=== PATIENT | female | born 1985 | race Caucasian/White ===

== ENCOUNTER 2016-09-23 14:30 | Inpatient (IN) | payer OTHER ==
[~2016-09-23] VITALS: Ht 162.6 cm; Wt 60.8 kg
[2016-09-23] VITALS (19 sets, daily range): BP systolic 107–135; BP diastolic 63–92
[~2016-09-23 14:30] MED LIST: CIPROFLOXACN500 MG PO; IRON325 M1 PO; PRE-NATAL PO; ULTRAM50 M1 PO
[2016-09-23 14:45] LABS: URINE BILIRUBIN - DIPSTICK NEGATIVE (NEGATIVE); URINE BLOOD DIPSTICK NEGATIVE (NEGATIVE); URINE COLOR YELLOW; URINE GLUCOSE - DIPSTICK NEGATIVE (NEGATIVE); URINE KETONE NEGATIVE (NEGATIVE); URINE NITRITE - DIPSTICK NEGATIVE (Negative); URINE PROTEIN - DIPSTICK TRACE mg/dL (NEG-TRACE); URINE SPECIFIC GRAVITY 1.015; URINE UROBILINOGEN - DIPSTICK 0.2 E.U./dL (0.2)
[2016-09-23 14:47] LABS: URINE CLARITY HAZY; URINE LEUK ESTERASE SMALL (NEGATIVE)
[2016-09-23 14:48] LABS: BARBITURATES NEGATIVE (NEGATIVE); COCAINE NEGATIVE (NEGATIVE); METHADONE NEGATIVE (NEGATIVE); OXCYCODONE NEGATIVE (NEGATIVE); TETRAHYDROCANNABIONOL POSITIVE (NEGATIVE); TRICYLIC ANTIDEPRESSANTS NEGATIVE (NEGATIVE)
[2016-09-23 14:53] LABS: URINE SQUAMOUS EPITHELIAL CELL FEW EPI/hpf (0-FEW)
--- NOTE | 2016-09-23 15:35 | NUR ---
1435: ROM+ AND FERN SPECIMENS COLLECTED. CLEAR POOLING PRESENT IN SPECULUM. 1513: CALLED DR. WALLER AND INFORMED HIM OF PATIENT'S HISTORY AND COMPLAINTS. ADMIT ORDERS RECEIVED AND IMPLEMENTED. 1535: IV SITE INITIATED AND LABS DRAWN ORDERED. IV FLUIDS INITIATED.
--- NOTE | 2016-09-23 15:35 | NUR ---
PATIENT BROUGHT UP TO UNIT FROM ER REGISTRATION VIA WHEELCHAIR. HEIGHT AND WEIGHT OBTAINED UPON ARRIVAL TO UNIT AND PATIENT THEN AMBULATED TO ROOM 256. UA SAMPLE COLLECTED, DOA CONSENT EXPLAINED TO PATIENT AND SIGNED BY PATIENT. PART A COMPLETED. PATIENT PRESENTS AT 38 WEEKS 6 DAYS WITH COMPLAINTS OF RUPTURED MEMBRANES AT 1230 TODAY AND CONTRACTIONS THAT STARTED AT THAT TIME WELL. CLEAR FLUID PER PATIENT. PATIENT DENIES ANY VAGINAL BLEEDING AND NONE IS PRESENT. PATIENT DENIES ANY COMPLICATIONS WITH THE AND NONE ARE KNOWN.
[2016-09-23 15:54] LABS: HEMATOCRIT 31.4 % (37.0-47.0); HEMOGLOBIN 10.7 g/dl (12.0-16.0); MEAN CELL VOLUME 101.3 fL CALC (80.0-100.0); MEAN CORPUSCULAR HGB 34.5 pG CALC (26.0-32.0); MEAN CORPUSCULAR HGB CONC 34.1 g/L CALC (32.0-36.0); NEUT# 9.46 thou/uL (2.00-7.15); RED BLOOD COUNT 3.1 mill/uL (4.20-5.60)
[2016-09-23 16:14] LABS: ALBUMIN 3.2 g/dL (3.2-5.0); ALKALINE PHOSPHATASE 146 u/l (38-126); ANION GAP 14 (6-22 (CALC)); BILIRUBIN, TOTAL 0.9 mg/dL (0.0-1.4); BUN 12 mg/dL (7-17); BUN/CREATININE RATIO 25 (12-20 (CALC)); CALCIUM 9.3 mg/dL (8.4-10.2); CARBON DIOXIDE 24 mmol/l (22-30); CHLORIDE 103 mmol/l (95-108); CREATININE 0.5 mg/dL (0.5-1.0); GFR > 60 ML/MIN (>=60 (CALC)); GFR FOR AFR.AMER. > 60 ML/MIN (>=60 (CALC)); GLUCOSE 97 mg/dL (65-105); POTASSIUM 4.1 mmol/l (3.5-5.1); SGOT/AST 27 u/l (14-36); SGPT/ALT 34 u/l (9-52); SODIUM 137 mmol/l (137-146); TOTAL PROTEIN 6.5 g/dL (6.3-8.2)
--- NOTE | 2016-09-23 16:16 | NUR ---
DR. WALLER IN TO SEE PATIENT; SVE PERFORMED BY MD: 4/80%/ZERO STATION.
--- NOTE | 2016-09-23 16:35 | NUR ---
PATIENT UP AND OUT OF BED TO AMBULATE THE HALLS ACCOMPANIES BY SIGNIFICANT OTHER.
--- NOTE | 2016-09-23 17:15 | NUR ---
PATIENT BACK INTO BED AND EFM RESUMED. ICE CHIPS PROVIDED FOR PATIENT. DOA RESULTS DISCUSSED WITH PATIENT IN REGARDS TO AND DOA CONSENT OBTAINED FOR INFANT. PATIENT VERBALIZED UNDERSTANDING AND NO QUESTIONS OR CONCERNS AT THIS TIME.
--- NOTE | 2016-09-23 17:45 | NUR ---
CALLED DR. WALLER AND INFORMED HIM OF PATIENT'S POSITVE PPD AND DRUG SCREEN; ORDER RECEIVED TO OBTAIN CHEST X-RAY.
--- NOTE | 2016-09-23 18:10 | NUR ---
PATIENT TURNED ONTO HER RIGHT SIDE. PATIENT STATES HER CONTRACTIONS ARE GETTING MORE UNCOMFORTABLE BUT STILL RATES HER PAIN 6/10. BREATHING TECHNIQUES REVIEWED WITH PATIENT AND RETURN DEMONSTRATION BY PATIENT. PATIENT DENIES ANY NEEDS AT THIS TIME.
--- NOTE | 2016-09-23 18:45 | NUR ---
PT SITTING IN BED WITH HOB ELEVATED. BREATHS THROUGH CONTRACTIONS. STATES PAIN IS 7/10. VS STABLE. FETUS ACTIVE WITH REACTIVE STRIP. REQUESTS TO GO TO THE RESTROOM. NO OTHER COMPLAINTS.
--- NOTE | 2016-09-23 19:30 | NUR ---
1929: DR. WALLER CALLS THE UNIT TO CHECK ON PT STATUS. NO NEW ORDERS GIVEN. REINFORCED PT CANNOT HAVE EPIDURAL UNTIL A REGULAR CONTRACTION PATTERN IS ESTABLISHED. 1954: PT AGREES TO AMBULATE. MONITORS OFF AND AMBULATES IN HALLWAY WITH SIGNIFICANT OTHER.
--- NOTE | 2016-09-23 21:12 | NUR ---
2051: PT COMPLAINS FEELING MORE PELVIC PRESSURE. SVE PERFORMED. PT IS 4CM, 60% "0" STATION. CONTINUES LEAKING CLEAR AMNIOTIC FLUID. CHANGING POSITIONS IN BED AND "ROCKING" HERSELF DURING CONTRACTIONS. IV CONTINUES PER MED PUMP AT 125CC/HR. IV SITE WNL. FETUS ACTIVE. 2101: DR. WALLER HERE TO SEE PT. SUGGESTS TO PT TO TAKE NUBAIN FOR PAIN. PT AGREES. 2111: NUBAIN 10MG IVP GIVEN FOR PAIN OF 8. SEE E-MAR FOR DETAILS.
--- NOTE | 2016-09-23 22:07 | NUR ---
AMBULATED TO BIRTHING ROOM. CALL PLACED TO NURSING PROPOSAL CONSULTANT TO PAGE ANESTHESIA FOR EPIDURAL.
--- NOTE | 2016-09-23 22:30 | NUR ---
FHTS NOT RECORDING DUE TO PTS POSITION. PTS HEART RATE IS RECORDING ON STRIP AND IS REFLECTING CARDIAC TRACING.
--- NOTE | 2016-09-23 22:40 | NUR ---
2205:LR BOLUS STARTED FOR EPIDURAL PLACEMENT. MILADY WASHBURN CRNA HERE TO TALK TO PT. DR. WALLER IN PHYSICIANS LOUNGE ON UNIT. SALES PROJECT ADMINISTRATOR, PULSE OXIMETER, MONITORS, BP CUFF ALL IN PLACE READY FOR EPIDURAL PLACEMENT. 2231: TIME OUT CALLED FOR PT IDENTIFICATION. 2232: SITS ON SIDE OF BED WITH SIGNIFICANT OTHER SUPPORTING HER FOR EPIDURAL PLACEMENT. 2233: LOCAL ANESTHESIA GIVEN BY CYBER SECURITY INSTRUCTOR. 2234: EPIDURAL CATHETER THREADED. 2236: TEST DOSE GIVEN PER CYBER SECURITY INSTRUCTOR. 2240: EPIDURAL DOSING STARTED BY Beto WASHBURN CRNA.
--- NOTE | 2016-09-23 23:33 | NUR ---
PT VOIDS 400 CC IN BED SHAH.
[2016-09-24] VITALS (14 sets, daily range): BP systolic 101–128; BP diastolic 50–78
--- NOTE | 2016-09-24 00:30 | NUR ---
0014: O2 PLACED PER NON-REBREATHER MASK FOR O2 SATS AT 88%. O2 AT 10L/MIN. 0030: O2 SAT CHANGED TO PORTABLE VS MACHINE AND VALUE IS 91%. DR. WALLER HERE AND SECOND BAG OF MEMBRANES RUPTURE WITH BLOOD TINGED FLUID. SVE DONE 6-[address] WALLER.
--- NOTE | 2016-09-24 01:03 | NUR ---
MILADY WASHBURN DIGESTER COOK HERE TO GIVE PT ANOTHER DOSE OF NAROPIN. O2 SAT CONTINUES TO REGISTER BELOW 90%. O2 PULSE OXIMETER MOVED TO LEFT INDEX WITH BETTER READINGS AT 100%.
--- NOTE | 2016-09-24 01:33 | NUR ---
SVE EXAM PER DR. WALLER. 8CM, "O"/+1 STATION, 100% EFFACED. REACTIVE STRIP NOTED. SEE LABOR PROGRESS NOTES.
--- NOTE | 2016-09-24 03:00 | NUR ---
0240: DR.TEODORESCU FLORESE, STATES PT IS COMPLETE AND CAN START PUSHING. 0229: NURSE DOES SVE AND PT HAS ANTERIOR CERVICAL LIP. ENCOURAGED NOT TO PUSH AT THIS TIME. 0240: VOIDS ON GREEN CHUX. CONTINUES LEAKING CLEAR AMNIOTIC FLUID. IV INFUSING PER MED PUMP AT 125CC/HR. 0300: ANTERIOR LIP NOTED, TO KNEE CHEST POSITION.
--- NOTE | 2016-09-24 03:18 | NUR ---
0318: POSITIONED BACK TO SUPINE POSITION. HAVING PAIN. CALLED Beto WASHBURN CRNA FOR PERMISSION TO GIVE NUBAIN. 0325: NUBAIN GIVEN. SEE E-MAR FOR DETAILS.
--- NOTE | 2016-09-24 03:29 | NUR ---
0329: EPIDURAL BOLUS GIVEN PER PASCALE WASHBURN. 0347: PUSHING WITH CONTRACTIONS. SEE DELIVERY ROOM RECORD FOR DELIVERY.
--- NOTE | 2016-09-24 05:09 | NUR ---
ROUTINE MEDICATIONS GIVEN CHARTED ON EMAR. TOLERATED WELL.
--- NOTE | 2016-09-24 05:36 | NUR ---
[facility] ABUSE HOTLINE FAX TRANSMITTAL FORM FAXED.
--- NOTE | 2016-09-24 06:30 | NUR ---
FUNDUS FIRM 1/U DEVIATED TO RIGHT. ENCOURAGED PT TO GET UP OOB TO BR TO VOID. EMANUEL CARE PROVIDED. PT VERBALIZED UNDERSTANDING AND TOLERATED WELL W/O DIZZINESS. PT PASSED SMALL CLOT WHILE ON TOLIET. PT BACK TO BED. FUNDUS FIRM AT U. SIGNIFICANT OTHER AT BEDSIDE. PT DENIES ANY OTHER NEEDS AT THIS TIME. ENCOURAGED PT TO CALL WITH ANY NEEDS OR CONCERNS.
--- NOTE | 2016-09-24 07:00 | NUR ---
PT RESTING IN BED, ASSESSMENT AND VS DONE, STABLE. MOTRIN STARTING TO RELIEF PAIN. SIGNIFICANT OTHER AT BEDSIDE. DISCUSSED PLAN OF CARE WITH PT, PT VERBALIZED UNDERSTANDING. DENIES ANY NEEDS.
--- NOTE | 2016-09-24 08:05 | NUR ---
DR. WALLER AT BEDSIDE AT THIS TIME.
--- NOTE | 2016-09-24 08:51 | NUR ---
IVF WITH PITOCIN DONE INFUSING, IV SALINE LOCKED, FLUSHED. PT SIGNED CONSENT FOR BILATERAL TUBAL LIGATION. PT UP TO BATHROOM, VOIDED. HEAT PACKS GIVEN FOR CRAMPING. SIGNIFICANT OTHER REMAINS AT BEDSIDE, BOTH DENY ANY OTHER NEEDS.
--- NOTE | 2016-09-24 10:06 | NUR ---
PT RESTING IN BED, HOLDING , POSITIVE BONDING. DENIES ANY NEEDS.
--- NOTE | 2016-09-24 12:03 | NUR ---
MEDICATED WITH MOTRIN FOR CRAMPING PAIN, DENIES ANY OTHER NEEDS.
--- NOTE | 2016-09-24 14:07 | NUR ---
PT RESTING IN BED, HOLDING , POSITIVE BONDING. DENIES ANY PAIN OR NEEDS AT THIS TIME.
--- NOTE | 2016-09-24 16:00 | NUR ---
PT RESTING, RECENTLY SHOWERED, VS DONE, STABLE, DENIES ANY PAIN. SIGNIFICANT OTHER AT BEDSIDE.
--- NOTE | 2016-09-24 16:46 | NUR ---
DR. WALLER AT BEDSIDE ASSESSING PT.
--- NOTE | 2016-09-24 18:00 | NUR ---
GRETEL DO FROM [facility] CAME TO VISIT WITH PT AT THIS TIME.
--- NOTE | 2016-09-24 18:12 | NUR ---
PT MEDICATED WITH MOTRIN FOR CRAMPING PAIN AT THIS TIME.
--- NOTE | 2016-09-24 18:42 | NUR ---
REPORT GIVEN TO Amanda QUINTERO RN.
--- NOTE | 2016-09-24 18:45 | NUR ---
REPORT RECEIVED FROM Racquel HAYNES RN
--- NOTE | 2016-09-24 22:00 | NUR ---
POC REVIEWED WITH PT, UNDERSTANDING VERBALIZED
--- NOTE | 2016-09-25 04:00 | NUR ---
PT SLEEPING SOUNDLY WITH IN CRIB AT BS.
[2016-09-25 06:00] VITALS: BP 111/75
[2016-09-25 06:41] LABS: HEMATOCRIT 27.5 % (37.0-47.0); HEMOGLOBIN 9.2 g/dl (12.0-16.0); IMMATURE GRANULOCYTES 0.8 % (0.0-1.0); MEAN CORPUSCULAR HGB 34.5 pG CALC (26.0-32.0); MEAN CORPUSCULAR HGB CONC 33.5 g/L CALC (32.0-36.0); NEUT# 5.62 thou/uL (2.00-7.15); RED BLOOD COUNT 2.67 mill/uL (4.20-5.60); RED CELL DISTRI WIDTH 13.2 % (11.5-15.5)
--- NOTE | 2016-09-25 06:55 | NUR ---
REPORT RECEIVED FROM MARKIE PARISH. PT IS AWAKE AND ALERT, AWAITING TUBAL LIGATION, DENIES CONCERNS OR QUESTIONS
--- NOTE | 2016-09-25 07:05 | NUR ---
PREOP CHECKLIST COMPLETED, CONSENT VERIFIED, PREOP MEDS DEFERRED PER ORDNANCE ENGINEERING TECHNICIAN GANESH. TO BE DONE IN PREOP HOLDING
--- NOTE | 2016-09-25 07:12 | NUR ---
TO OR VIA STRETCHER WITH GANESH PARISH, OR TO PREOP. PREOP MEDS TO BE GIVEN PER OR. IV . IV RL BOLUS JUST BEGUN, IV SITE APPEARS HEALTHY. PT VERBALIZES UNDERSTANDING OF PROCEDURE, RISKS AND BENEFITS. SIGNED CONSENT IS ON THE CHART.
--- NOTE | 2016-09-25 09:30 | NUR ---
REPORT RECEIVED FROM Arash TORRES RN. PT ASSISTED, AMBULATED TO BED AND THEN DECIDED THAT SHE NEEDED TO VOID AND AMBULATED TO BR , VOIDED WITHOUT DIFFICULTY, CLEAR URINE. IV SITE HEALTHY. UMBILICAL INCISION WITH DERMABOND, OPEN TO AIR, NO DRESSING. PT RECEIVED TORODOL IV AT 0910. FATHER OF BABY IN THE ROOM. PLAN OF CARE DISCUSSED WITH PT AND PARTNER, ENCOURAGEMENT GIVEN, IMPORTANCE OF HELP AT HOME, DEEP BREATHING, SMOKING CESSATION AND DVT PREVENTION DISCUSSED
[2016-09-25 09:45] VITALS: BP 116/84
--- NOTE | 2016-09-25 10:01 | NUR ---
SMALL AMTS FLUIDS ENCOURAGED. PT STATES SHE IS FEELING BETTER. REST ENCOURAGED.
[2016-09-25 10:15] VITALS: BP 111/81
--- NOTE | 2016-09-25 10:22 | NUR ---
PT DOZING ON AND OFF. REQUEST FOR PAIN NUMBER DEFERRED. FATHER OF BABY IN RECLINER. IV SITE HEALTHY, INCISION WITHOUT BLEEDING. VAGINAL LOCHIA SCANT
[2016-09-25 10:45] VITALS: BP 112/78
--- NOTE | 2016-09-25 10:53 | NUR ---
PT STATES THAT SHE IS A NON SMOKER AND HAS NOT HAD A CIGARETTE SINCE EARLY IN THE . SHE DECLINES COUNSELING FOR SMOKING CESSATION. RISKS OF ANYONE SMOKING IN THE HOUSEHOLD DISCUSSED WITH BOTH PARENTS AND UNDERSTANDING VERBALIZED
--- NOTE | 2016-09-25 11:10 | NUR ---
FEELING BETTER. IV FLUIDS D/C. PT OOB TO VOID, CLEAR URINE, SELF EMANUEL CARE DONE. PT STATES PAIN IS LESS AND MOVING WELL INDEPENDENTLY
--- NOTE | 2016-09-25 11:14 | NUR ---
AMBULATION ENCOURAGED. POSTOP COMPLICATION PREVENTION AGAIN REVIEWED.
[2016-09-25 11:18] VITALS: BP 110/70
--- NOTE | 2016-09-25 13:07 | NUR ---
MEDICATED FOR PAIN OF 5. PT HOLDING HER BABY. NO VISITORS PRESENT
--- NOTE | 2016-09-25 13:42 | NUR ---
PT STATES MOTRIN EFFECTIVE, AND WILL BE NAPPING. ASKS NOT TO BE DISTURBED.
[2016-09-25] MEDS ORDERED: IBUPROFEN600 MG PO (13:59)
[2016-09-25] MEDS ORDERED: NORCO1 TA1 PO (14:01)
[2016-09-25 15:32] VITALS: BP 114/72
--- NOTE | 2016-09-25 16:08 | NUR ---
DISCHARGED TO HOME IN WHEELCHAIR, ACCOMPANIED BY FATHER OF THE BABY, CARRYING BABY IN CARSEAT, ESCORTED BY MYSELF. NO DISTRESS, AMBULATORY WITHOUT DIFFICULTY. MED REC AND D/C INSTRUCTIONS IN HAND. PT EXPRESSING HER APPRECIATION FOR HER CARE
== END 2016-09-25 16:08 | disposition home or self-care (01) | DRG 767 ==
LOC: OBOP 14:30 → OB 14:30 → OBOP 15:12 → OB 15:13
PROC: 10E0XZZ Delivery of Products of Conception, External Approach (ICD-10-PCS; principal; 2016-09-24)
PROC: 0UB70ZZ Excision of Bilateral Fallopian Tubes, Open Approach (ICD-10-PCS; 2016-09-25)
DX: O90.81 Anemia of the puerperium (principal); Z37.0 Single live birth; D62 Acute posthemorrhagic anemia; Z3A.38 38 weeks gestation of pregnancy; Z30.2 Encounter for sterilization

== ENCOUNTER 2017-06-30 15:50 | Emergency (ER) | payer OTHER ==
[~2017-06-30] VITALS: Ht 162.6 cm; Wt 50.4 kg
[~2017-06-30 15:50] MED LIST changes: +IBUPROFEN600 MG PO; +NORCO1 TA1 PO
[2017-06-30 17:55] LABS: HEMATOCRIT 38.6 % (37.0-47.0); HEMOGLOBIN 13.5 g/dl (12.0-16.0); IMMATURE GRANULOCYTES 1.3 % (0.0-1.0); MEAN CELL VOLUME 98.7 fL CALC (80.0-100.0); MEAN CORPUSCULAR HGB 34.5 pG CALC (26.0-32.0); NEUT# 3.78 thou/uL (2.00-7.15); RED BLOOD COUNT 3.91 mill/uL (4.20-5.60); RED CELL DISTRI WIDTH 12.7 % (11.5-15.5)
[2017-06-30 18:01] LABS: ALBUMIN 4.3 g/dL (3.2-5.0); ALKALINE PHOSPHATASE 71 u/l (38-126); ANION GAP 19 (6-22 (CALC)); BILIRUBIN, TOTAL 0.8 mg/dL (0.0-1.4); BUN 17 mg/dL (7-17); BUN/CREATININE RATIO 23 (12-20 (CALC)); CALCIUM 9.8 mg/dL (8.4-10.2); CARBON DIOXIDE 21 mmol/l (22-30); CHLORIDE 109 mmol/l (95-108); CREATININE 0.8 mg/dL (0.5-1.0); GFR > 60 ML/MIN (>=60 (CALC)); GFR FOR AFR.AMER. > 60 ML/MIN (>=60 (CALC)); GLUCOSE 91 mg/dL (65-105); POTASSIUM 4.1 mmol/l (3.5-5.1); SGOT/AST 133 u/l (14-36); SGPT/ALT 267 u/l (9-52); SODIUM 145 mmol/l (137-146); TOTAL PROTEIN 7.2 g/dL (6.3-8.2)
[2017-06-30 20:22] LABS: URINE BILIRUBIN - DIPSTICK NEGATIVE (NEGATIVE); URINE BLOOD DIPSTICK LARGE (NEGATIVE); URINE COLOR YELLOW; URINE GLUCOSE - DIPSTICK NEGATIVE (NEGATIVE); URINE KETONE NEGATIVE (NEGATIVE); URINE LEUK ESTERASE NEGATIVE (Negative); URINE NITRITE - DIPSTICK NEGATIVE (Negative); URINE PROTEIN - DIPSTICK NEGATIVE (NEG-TRACE); URINE SPECIFIC GRAVITY <=1.005; URINE UROBILINOGEN - DIPSTICK 0.2 E.U./dL (0.2)
[2017-06-30 20:24] LABS: URINE CLARITY CLEAR
[2017-06-30 20:32] LABS: URINE RBC TNTC RBC/hpf (0-5); URINE SQUAMOUS EPITHELIAL CELL FEW EPI/hpf (0-FEW)
[2017-06-30 22:40] VITALS: BP 112/75
== END 2017-06-30 23:25 | DRG 536 ==
LOC: ED 15:50
PROVIDERS: Emergency Medicine
DX: S32.591A Other specified fracture of right pubis, initial encounter for closed fracture (principal); F10.129 Alcohol abuse with intoxication, unspecified; F41.9 Anxiety disorder, unspecified; M25.532 Pain in left wrist; M25.511 Pain in right shoulder; M79.661 Pain in right lower leg; M25.561 Pain in right knee; V86.55XA Driver of 3- or 4- wheeled all-terrain vehicle (ATV) injured in nontraffic accident, initial encounter
CPT/HCPCS: Q9967

== ENCOUNTER 2019-02-05 21:35 | Emergency (ER) | payer OTHER ==
[~2019-02-05] VITALS: Ht 162.6 cm; Wt 46.2 kg
[2019-02-05] MEDS ORDERED: MOTRIN800 MG PO (21:57)
[2019-02-05] MEDS ORDERED: TRAMADOL HCL50 MG PO (21:57)
[2019-02-05] MEDS ORDERED: AMOXICILLIN500 MG PO (21:57)
[2019-02-05 22:15] VITALS: BP 130/97
== END 2019-02-05 22:15 | disposition home or self-care (01) ==
LOC: ED 21:35
DX: K02.9 Dental caries, unspecified (principal); K04.7 Periapical abscess without sinus; M84.68XA Pathological fracture in other disease, other site, initial encounter for fracture; J06.9 Acute upper respiratory infection, unspecified; F17.210 Nicotine dependence, cigarettes, uncomplicated

== ENCOUNTER 2019-06-02 | Emergency (ER) | payer OTHER ==
[~2019-06-02] MED LIST changes: +AMOXICILLIN500 MG PO; +MOTRIN800 MG PO; +TRAMADOL HCL50 MG PO
[2019-06-02] MEDS ORDERED: MIRTAZAPINE15 MG PO (18:57)
[2019-06-02 19:31] LABS: HEMATOCRIT 44.6 % (37.0-47.0); HEMOGLOBIN 14.8 g/dl (12.0-16.0); IMMATURE GRANULOCYTES 0.9 % (0.0-5.0); MEAN CELL VOLUME 104.7 fL CALC (80.0-100.0); MEAN CORPUSCULAR HGB 34.7 pG CALC (26.0-32.0); MEAN CORPUSCULAR HGB CONC 33.2 g/L CALC (32.0-36.0); NEUT# 8.05 thou/uL (2.00-7.15); RED BLOOD COUNT 4.26 mill/uL (4.20-5.60); RED CELL DISTRI WIDTH 12.8 % (11.5-15.5)
[2019-06-02 19:46] LABS: ALBUMIN 4.2 g/dL (3.2-5.0); BUN 16 mg/dL (7-17); BUN/CREATININE RATIO 29 (12-20 (CALC)); CHLORIDE 98 mmol/l (95-108); CREATININE 0.6 mg/dL (0.5-1.0); GFR > 60 ML/MIN (>=60 (CALC)); GFR FOR AFR.AMER. > 60 ML/MIN (>=60 (CALC)); POTASSIUM 4.3 mmol/l (3.5-5.1); SGOT/AST 58 u/l (14-36); SODIUM 141 mmol/l (137-146)
[2019-06-02 19:50] LABS: ALKALINE PHOSPHATASE 180 u/l (38-126); ANION GAP 11 (6-22 (CALC)); BILIRUBIN, TOTAL 0.3 mg/dL (0.0-1.4); CARBON DIOXIDE 36 mmol/l (22-30)
[2019-06-02 20:28] LABS: URINE BILIRUBIN - DIPSTICK NEGATIVE (NEGATIVE); URINE BLOOD DIPSTICK NEGATIVE (NEGATIVE); URINE COLOR YELLOW; URINE GLUCOSE - DIPSTICK NEGATIVE (NEGATIVE); URINE KETONE NEGATIVE (NEGATIVE); URINE LEUK ESTERASE TRACE (NEGATIVE); URINE PROTEIN - DIPSTICK NEGATIVE (NEG-TRACE); URINE UROBILINOGEN - DIPSTICK 0.2 E.U./dL (0.2)
[2019-06-02 20:34] LABS: URINE BACTERIA MANY hpf; URINE NITRITE - DIPSTICK POSITIVE (Negative)
[2019-06-02 20:36] LABS: BARBITURATES NEGATIVE (NEGATIVE); COCAINE NEGATIVE (NEGATIVE); METHADONE NEGATIVE (NEGATIVE); OXCYCODONE NEGATIVE (NEGATIVE); TETRAHYDROCANNABIONOL POSITIVE (NEGATIVE); TRICYLIC ANTIDEPRESSANTS NEGATIVE (NEGATIVE)
[2019-06-02] MEDS ORDERED: NAPROXEN500 MG PO (21:25)
[2019-06-02] MEDS ORDERED: CEPHALEXIN500 M1 PO (21:25)
[2019-06-02] MEDS ORDERED: BACTRIM DS1 TAB PO (21:25)
[2019-06-02] MEDS ORDERED: LORTAB 1010 MG PO (22:04)
== END 2019-06-02 23:21 | disposition home or self-care (01) ==
PROVIDERS: Emergency Medicine
DX: L03.114 Cellulitis of left upper limb (principal); N39.0 Urinary tract infection, site not specified; F17.200 Nicotine dependence, unspecified, uncomplicated; B96.20 Unspecified Escherichia coli [E. coli] as the cause of diseases classified elsewhere

== ENCOUNTER 2019-06-03 22:37 | Inpatient (IN) | payer OTHER ==
[~2019-06-03] VITALS: Ht 162.6 cm; Wt 47.3 kg
[~2019-06-03 22:37] MED LIST changes: +BACTRIM DS1 TAB PO; +CEPHALEXIN500 M1 PO; +LORTAB 1010 MG PO; +MIRTAZAPINE15 MG PO; +NAPROXEN500 MG PO
--- NOTE | 2019-06-03 22:47 | NUR ---
PATIENT TO ROOM 3. AWAITING MD UREÑA.
--- NOTE | 2019-06-03 23:20 | NUR ---
IV ESTABLISHED, LABS DRAWN AND SENT.
[2019-06-03 23:46] LABS: HEMATOCRIT 42.5 % (37.0-47.0); IMMATURE GRANULOCYTES 0.8 % (0.0-5.0); MEAN CELL VOLUME 104.2 fL CALC (80.0-100.0); MEAN CORPUSCULAR HGB 34.3 pG CALC (26.0-32.0); MEAN CORPUSCULAR HGB CONC 32.9 g/L CALC (32.0-36.0); NEUT# 9.28 thou/uL (2.00-7.15); RED BLOOD COUNT 4.08 mill/uL (4.20-5.60); RED CELL DISTRI WIDTH 12.6 % (11.5-15.5)
[2019-06-04 00:03] LABS: ALBUMIN 3.8 g/dL (3.2-5.0); ALKALINE PHOSPHATASE 147 u/l (38-126); ANION GAP 14 (6-22 (CALC)); BILIRUBIN, TOTAL 0.4 mg/dL (0.0-1.4); BUN 21 mg/dL (7-17); BUN/CREATININE RATIO 42 (12-20 (CALC)); CARBON DIOXIDE 30 mmol/l (22-30); CHLORIDE 98 mmol/l (95-108); CREATININE 0.5 mg/dL (0.5-1.0); GFR > 60 ML/MIN (>=60 (CALC)); GFR FOR AFR.AMER. > 60 ML/MIN (>=60 (CALC)); SGOT/AST 58 u/l (14-36); SODIUM 137 mmol/l (137-146); TOTAL PROTEIN 7.4 g/dL (6.3-8.2)
--- NOTE | 2019-06-04 00:15 | NUR ---
PATIENT RETURNS TO DEPARTMENT. SIG OTHER AT BEDSIDE. AWAITING ALL RESULTS AND PLAN OF CARE. DENIES ANY NEW COMPLAINTS.
--- NOTE | 2019-06-04 00:54 | NUR ---
PATIENT AWARE OF PLANS TO ADMIT. FIRST ABX HUNG. PATIENT GIVEN WARM BLANKETS. AWAITING ORDERS AND BED ASSIGNMENT.
--- NOTE | 2019-06-04 00:55 | NUR ---
SBAR SENT TO ICU
--- NOTE | 2019-06-04 01:10 | NUR ---
REPORT CALLED TO ELIZA IN ICU. PATIENT READIED FOR TRANSPORT.
--- NOTE | 2019-06-04 01:13 | NUR ---
PATIENT OUT OF DEPARTMENT VIA WHEELCHAIR WITH ABX INFUSING.
[2019-06-04 01:14] VITALS: BP 106/66
--- NOTE | 2019-06-04 01:14 | NUR ---
34 yr old white female adm icu1 per stretcher as med surg overflow. stood to weigh then to bed. lt arm red. see photo. admits to "noticed it 3 days into rehab. got out of rehab saturday." came to er saturday then was to return sat for a wound check. history obtained per pt & er record. oriented to room. fall prcautions initiated. family retrieved from waiting room.
--- NOTE | 2019-06-04 01:50 | NUR ---
medicated for pain as ordered.
--- NOTE | 2019-06-04 03:33 | NUR ---
voided per br. urine spec collected & sent to lab.
[2019-06-04 04:02] LABS: URINE BILIRUBIN - DIPSTICK NEGATIVE (NEGATIVE); URINE BLOOD DIPSTICK NEGATIVE (NEGATIVE); URINE COLOR YELLOW; URINE GLUCOSE - DIPSTICK NEGATIVE (NEGATIVE); URINE KETONE NEGATIVE (NEGATIVE); URINE LEUK ESTERASE NEGATIVE (NEGATIVE); URINE NITRITE - DIPSTICK NEGATIVE (Negative); URINE PROTEIN - DIPSTICK NEGATIVE (NEG-TRACE); URINE SPECIFIC GRAVITY <=1.005; URINE UROBILINOGEN - DIPSTICK 0.2 E.U./dL (0.2)
[2019-06-04 04:04] LABS: BARBITURATES NEGATIVE (NEGATIVE); COCAINE NEGATIVE (NEGATIVE); METHADONE NEGATIVE (NEGATIVE); TETRAHYDROCANNABIONOL POSITIVE (NEGATIVE); TRICYLIC ANTIDEPRESSANTS NEGATIVE (NEGATIVE)
[2019-06-04 04:05] LABS: OXCYCODONE POSITIVE (NEGATIVE)
[2019-06-04 05:10] VITALS: BP 107/70
[2019-06-04 07:00] VITALS: BP 97/66
--- NOTE | 2019-06-04 07:45 | NUR ---
pt awake in bed; no apparent distress noted; assessment completed at this time; pt alert and oriented; complaints of pain to left arm/ anter elbow area rating 8/10; will medicate; no n/v noted; resp even and unlabored; lungs clear bilat; skin color wnl; ra; hr reg; strong pulses; no pedal edema noted; abd soft with bs present; no bm noted per commercial lines underwriter; pt admits to voiding without complication; no urine to inspect at this time; #22 patent to rfa with ivf infusing without complication; no redness or edema noted at site; plan of care/ meds explained; call light within reach; will continue to monitor
--- NOTE | 2019-06-04 08:01 | NUR ---
awake in bed eating breakfast; no apparent distress noted; iv intact; call light within reach; will continue to monitor
--- NOTE | 2019-06-04 08:35 | NUR ---
Dr Randall present at bedside to assess pt and discuss plan of care
--- NOTE | 2019-06-04 09:00 | NUR ---
S: PIETRO WATERS is a 34 F who presents with Abscess of left arm. She has a history of Anxiey/Depression, IV drug abuse . All medications in patient's chart were reviewed. O: VS: BP: 97/66 mmHg, P: 78 bpm,T:97.9 F W: 47.344 kg, HT: 162.56 cm, Scr= 0.5 mL/dL ,CrCl= 100.5 ml/min A: Blood culture is pending. P: Patient is on Zosyn 3.375 GM IV Q6H. Vancomycin ordered for pharmacy to dose. Start Vancomycin 1,000 mg IV Q12H. Vancomycin trough is drawn 30 minutes before the 4th dose on 06/05/19 at 1230. Vancomycin goal trough is between 10-15 mcg/ml. Pharmacy will follow and or advise on antibiotics use as needed.
--- NOTE | 2019-06-04 10:12 | NUR ---
resting in bed with eyes closed; no apparent distress noted; iv intact and patent; no redness or edema noted at site; call light within reach; will continue to monitor
--- NOTE | 2019-06-04 10:19 | NUR ---
Dr Truong present at bedside to assess pt and discuss plan of care
--- NOTE | 2019-06-04 10:40 | NUR ---
Dr Truong present at bedside for incision and drainage; wound culture obtained; dressing applied as per verbal orders; pt tolerated well; will continue to monitor
--- NOTE | 2019-06-04 12:15 | NUR ---
pt awake in bed; offers complaints of left arm pain; will medicate; no apparent distress noted; iv intact with ivf infusing without complication; no redness or edema noted at site; dresssing to left elbow remains cdi; call light within reach; will continue to monitor
[2019-06-04 14:00] VITALS: BP 105/68
--- NOTE | 2019-06-04 14:00 | NUR ---
resting in bed with eyes closed; no apparent distress noted; iv intact and patent; call light within reach; will continue to monitor
--- NOTE | 2019-06-04 18:20 | NUR ---
awake in bed; no apparent distress noted; iv intact and patent; ivf infusing without complication; no redness or edema noted at site; medicated for complaints of left arm pain; offers no additional complaints; call light within reach
--- NOTE | 2019-06-04 19:00 | NUR ---
awake. nad. dsg to lac cdi. #22 rfa ns infusing @ 125cchr. po fluids taken well. up ad eboni to br.
[2019-06-04 22:00] VITALS: BP 105/77
[2019-06-05] VITALS (7 sets, daily range): BP systolic 96–104; BP diastolic 65–75
--- NOTE | 2019-06-05 00:01 | NUR ---
eyes closed. no distress. ivf infusing well.
--- NOTE | 2019-06-05 03:30 | NUR ---
c/o pain @ lac site. medicated as ordered.
--- NOTE | 2019-06-05 04:30 | NUR ---
lab here. blood drawn.
[2019-06-05 04:58] LABS: MEAN CELL VOLUME 104.8 fL CALC (80.0-100.0); MEAN CORPUSCULAR HGB 34.8 pG CALC (26.0-32.0); MEAN CORPUSCULAR HGB CONC 33.2 g/L CALC (32.0-36.0); RED BLOOD COUNT 3.33 mill/uL (4.20-5.60); RED CELL DISTRI WIDTH 12.8 % (11.5-15.5)
[2019-06-05 05:05] LABS: HEMATOCRIT 34.9 % (37.0-47.0); HEMOGLOBIN 11.6 g/dl (12.0-16.0)
[2019-06-05 05:36] LABS: ANION GAP 11 (6-22 (CALC)); BUN 11 mg/dL (7-17); BUN/CREATININE RATIO 24 (12-20 (CALC)); CARBON DIOXIDE 28 mmol/l (22-30); CHLORIDE 102 mmol/l (95-108); CREATININE 0.5 mg/dL (0.5-1.0); GFR > 60 ML/MIN (>=60 (CALC)); GFR FOR AFR.AMER. > 60 ML/MIN (>=60 (CALC)); POTASSIUM 4.3 mmol/l (3.5-5.1); SODIUM 137 mmol/l (137-146)
--- NOTE | 2019-06-05 08:00 | NUR ---
PT SEEN RESTING IN THE BED WITH EYES CLOSED, WAKES EASILY. PT WITH HEADACHE PAIN, MEDICATED WHEN AVAILABLE. PT IS AMBULATORY TO BR NEEDED. DRESSING NOTED TO BLAKE.
--- NOTE | 2019-06-05 12:00 | NUR ---
PT REMAINS AWAKE, ALERT, AMBULATORY TO BR. SHE WAS PROVIDED WITH MOTRIN 600 MG FOR HEADACHE PAIN EARLIER, NO FURTHER COMPLAINTS.
--- NOTE | 2019-06-05 13:37 | NUR ---
DR OTTO HAS BEEN TO SEE PT JUST NOW. WOUND UNCOVERED, SEEN TO HAVE MINIMAL DRAINAGE, GOOD COLORATION. THIS WAS REWRAPPED AFTER HIS DEPARTURE. PT TOLERATED WELL.
--- NOTE | 2019-06-05 15:38 | NUR ---
S: PIETRO WATERS is a 34 F who presents with Abscess of left arm. She has a history of Anxiety/Depression, IV drug abuse. All medications in patient's chart were reviewed. O: VS: BP: 103/69 mmHg, P: 80 bpm, T: 99.0 F W: 47.344 kg, HT: 64 in, Scr= 0.5 mL/dL ,CrCl= 100.5 ml/min Vancomycin Trough= 6.0 ug/mL on 06/04/19 at 1230. A: Blood culture preliminary show no growth/24hours for aerobic and anaerobic . wound culture preliminary show many WBC, moderate epithelial cells, few positive cocci in pairs. P: Patient is on Zosyn 3.375 GM IV Q6H Vancomycin 1,000 MG IV Q12H Vancomycin ordered for pharmacy to dose. Start Vancomycin 1,000 MG IV Q8H. Vancomycin trough is drawn 30 minutes before the 4th dose on 06/06/19 at 1330. Vancomycin goal trough is between 10-15 mcg/ml. Pharmacy will follow and or advise on antibiotics use as needed.
[2019-06-05] MEDS ORDERED: BACTRIM DS1 TAB PO (15:51)
--- NOTE | 2019-06-05 16:34 | NUR ---
PT HAS BEEN DISCHARGED TO HOME. DR GROVES RETURNED TO ICU, PLEASED WITH HER PROGRESS, WRITES FOR DISCHARGE. PT LEAVES [facility] IN STABLE CONDITION, VERBALIZES UNDERSTANDING OF DC INSTRUCTIONS.
== END 2019-06-05 16:30 | disposition home or self-care (01) | DRG 603 ==
LOC: ED 22:37 → ED-I 06-04 00:32 → ED 06-04 00:54 → ICU 06-04 00:55
PROVIDERS: Emergency Medicine; Internal Medicine; ADMIT Internal Medicine; ATTEND Internal Medicine
PROC: 0H9EXZX Drainage of Left Lower Arm Skin, External Approach, Diagnostic (ICD-10-PCS; principal; 2019-06-04)
DX: L02.414 Cutaneous abscess of left upper limb (principal); L03.114 Cellulitis of left upper limb; B95.62 Methicillin resistant Staphylococcus aureus infection as the cause of diseases classified elsewhere; F17.210 Nicotine dependence, cigarettes, uncomplicated; F15.10 Other stimulant abuse, uncomplicated